=== PATIENT | female | born 1970 | race Caucasian/White ===

== ENCOUNTER 2017-05-24 13:38 | Emergency (ER) | payer OTHER ==
[~2017-05-24 13:38] MED LIST: ARIP1TAB46 PO; HYDR-3129 PO; PAXI20TA PO; VIST50CA PO
[2017-05-24 13:39] VITALS: BP 127/60; PULSE 64; RESP 15; TEMP 98.3; O2SAT 100
[2017-05-24] MEDS ORDERED: PROV200T11 PO (15:21)
[2017-05-24] MEDS ORDERED: EQUE200C PO (15:21)
[2017-05-24] MEDS ORDERED: XYRE500S PO (15:21)
[2017-05-24] MEDS ORDERED: MONT10TA2 PO (15:21)
[2017-05-24 15:23] VITALS: BP 112/55; PULSE 60; RESP 17; O2SAT 100
[2017-05-24] MEDS ORDERED: IBUP800T23 PO (15:41)
[2017-05-24] MEDS ORDERED: ROBA500T PO (15:41)
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
[2017-05-24] MEDS ORDERED: METHOCARBAMOL 500 MG TAB PO ONE (16:00)
== END 2017-05-24 16:10 | disposition home or self-care (01) ==
LOC: NEPD 13:38
DX: S16.1XXA Strain of muscle, fascia and tendon at neck level, initial encounter (principal); S23.3XXA Sprain of ligaments of thoracic spine, initial encounter; F41.9 Anxiety disorder, unspecified; F17.200 Nicotine dependence, unspecified, uncomplicated; V49.9XXA Car occupant (driver) (passenger) injured in unspecified traffic accident, initial encounter; Z79.899 Other long term (current) drug therapy
CPT/HCPCS: 99283